=== PATIENT | female | born 1975 | race Caucasian/White ===

== ENCOUNTER 2019-09-28 06:30 | Outpatient (CLI) | payer OTHER ==
[~2019-09-28] VITALS: Ht 172.7 cm; Wt 70.0 kg
[~2019-09-28 06:30] MED LIST: HYDR-757 PO; IBP800T PO; TRAZ-144 PO
[2019-09-28] MEDS ORDERED: HYDR-3820 PO (07:39)
[2019-10-02] MEDS ORDERED: SUCR1TAB36 PO (09:25)
[2019-10-02] MEDS ORDERED: PANT40TA2 PO (09:25)
== END 2019-09-28 15:07 ==
LOC: PREOP 06:30
PROVIDERS: ATTEND Surgery
DX: Z01.818 Encounter for other preprocedural examination (principal); Z11.59 Encounter for screening for other viral diseases
CPT/HCPCS: 87635